=== PATIENT | female | born 1995 ===

== ENCOUNTER 2019-03-12 11:32 | Inpatient (IN) | payer OTHER ==
[2019-03-12 19:49] VITALS: BMI 32.0
[2019-03-12] MEDS ORDERED: Lactated Ringer's 1,000 ML IV ONE (19:50)
[2019-03-12 20:23] LABS: BASO % 0.3 % (0.0-2.0); EOS % 0.2 % (0.0-4.0); HEMOGLOBIN 10.2 g/dL (11.0-16.0); LYMPH # 1.9 K/uL (1.0-4.3); LYMPH % 30.7 % (20.0-40.0); MEAN CELL VOLUME 69.9 fL (81.0-99.0); MEAN CORPUSCULAR HEMOGLOBIN 21.5 pg (27.0-31.0); MEAN CORPUSCULAR HGB CONC 30.8 g/dL (33.0-37.0); MEAN PLATELET VOLUME 9.3 fL (7.2-11.7); MONO # 0.6 K/uL (0.0-0.8); NEUT # 3.8 K/uL (1.8-7.0); NEUT % 59.8 % (50.0-75.0); RBC 4.76 Mil/uL (3.80-5.20); RED CELL DISTRIBUTION WIDTH 18.4 % (11.5-14.5); WHITE BLOOD COUNT 6.3 K/uL (4.8-10.8)
--- NOTE | 2019-03-12 20:30 | OBADHP ---
Datetime: 03/12/2019 19:14 Admit Comment, IP Provider: 23 yo female G1 with an IUP at 40.6 weeks and admitted for IOL for postd ates. Admits to adequate FM and denies LOF, VB or VD. Denies any complications. PMHx: Chronic Anemia PSHx: Negative Meds: PNV NKDA Social Hx denies smoking, alcohol or street drugs PE see findings above A/P Postdates IOL GBS Negative Hx of Chronic Anemia Labs and IVF ordered Will give Cytotec po and ordered Requested an Epidural and will give when requested Anticipate a vaginal delivery Pelvic Type - PN: Adequate Extremities - PN: Normal Abdomen - PN: Normal Back - PN: Normal Breast - PN: Not Done Lungs - PN: Normal Heart - PN: Normal Thyroid - PN: Normal Neurologic - PN: Normal HEENT - PN: Normal General - PN: Normal Presentation-Admit: Vertex (Annotations: Data stored by CPN on behalf of user) FHR - Baseline A Provider: 120 Membranes, Provider: Intact Contraction Comments Provider: 3-5 Gestation - Est Wks by US: 40.6 IP Hx Assessment: The History has been Reviewed and is Current Vital Signs Provider: Reviewed; Within Normal Limits IP Chief Complaint: Scheduled induction of labor NICHD Variability Prov Fetus A: Moderate 6-25bpm NICHD Accel Fetus A IP Provider: 10X10 FHR Category Provider Fetus A: Category I NICHD Decel Fetus A IP Provider: None Dilatation, Provider: 2 Effacement, Provider: 80 Station, Provider: -2 Genitourinary Exam: Normal DTRs - PN: Normal EGA AdmitDate IP: 40.6 IP Adm Impression: Postterm, intrauterine ; No Active Labor; Intact Membranes IP Admit Plan: Admit to unit; Initiate labor induction protocol
[2019-03-12 20:33] LABS: SQUAMOUS EPITHIAL 5 /hpf (0-5); URINE BACTERIA FEW (<OCC); URINE BILIRUBIN NEGATIVE (NEGATIVE); URINE BLOOD NEGATIVE (NEGATIVE); URINE CLARITY Hazy (Clear); URINE COLOR Yellow (YELLOW); URINE GLUCOSE (UA) NORMAL (Normal); URINE LEUKOCYTE ESTERASE 2+ Leu/uL (Negative); URINE PROTEIN NEGATIVE (NEGATIVE); URINE UROBILINOGEN NORMAL mg/dL (0.2-1.0)
[2019-03-12 20:44] LABS: ALB/GLOB RATIO 1.2 (1.0-2.1); ALBUMIN 3.5 g/dL (3.5-5.0); ALT/SGPT 16 U/L (9-52); AST/SGOT 20 U/L (14-36); BLOOD UREA NITROGEN 8 mg/dL (7-17); CALCIUM 9.3 mg/dl (8.6-10.4); GFR NON-AFRICAN AMERICAN > 60
[2019-03-12] MEDS ORDERED: Fentanyl/Bupivacaine HCl 250 ML EPI ONE (23:03)
[2019-03-12] MEDS: Lactated Ringer's 1,000 ML IV SCH (23:44)
[2019-03-13] MEDS: Lactated Ringer's 1,000 ML IV SCH (05:15)
[2019-03-13] MEDS ORDERED: Oxytocin 10 Units/ml Inj ONE (06:12)
--- NOTE | 2019-03-13 06:56 | OBPN ---
Datetime: 03/13/2019 06:54 IP Procedures Other: SROM IP Progress Impression: Normal progression of labor; Reassuring heart rate IP Informed Consent Obtain: Vaginal Delivery IP Procedures: Sterile Vag Exam IP Progress Plan: Continue present management Dilatation, Provider: 8 Datetime: 03/12/2019 23:45 FHR - Baseline A Provider: 120 Gestation - Est Wks by US: 40.6 Presentation-Admit: Vertex IP Progress Note Comment: Pt seen and examined Responded well to Cytotec Epidural in place and working well Reassuring FHT's Continue Present Management NICHD Accel Fetus A IP Provider: 10X10 FHR Category Provider Fetus A: Category I NICHD Variability Prov Fetus A: Moderate 6-25bpm Effacement, Provider: 90 Station, Provider: -2 NICHD Decel Fetus A IP Provider: None Datetime: 03/12/2019 19:14 Membranes, Provider: Intact Contraction Comments Provider: 3-5 Vital Signs Provider: Reviewed; Within Normal Limits
--- NOTE | 2019-03-13 07:11 | OBPN ---
Datetime: 03/13/2019 06:54 Membranes, Provider: Ruptured Amniotic Fluid Color, Provider: Clear Gestation - Est Wks by US: 41.0 Presentation-Admit: Vertex IP Progress Note Comment: Pt seen and examined C/O of pain and Anesthesia called in and here Making good progress after 2 doses of Cytotec Reassuring FHT's Anticipate Vaginal Delivery
--- NOTE | 2019-03-13 09:41 | OBPN ---
Datetime: 03/13/2019 09:35 IP Progress Impression: Normal progression of labor; Reassuring heart rate IP Informed Consent Obtain: Vaginal Delivery IP Procedures: Sterile Vag Exam IP Progress Plan: Continue present management Membranes, Provider: Ruptured FHR - Baseline A Provider: 110 Gestation - Est Wks by US: 41.0 IP Progress Note Comment: Pt aseen and examined Pushing and doing well Reassuring tracing Anticipate a vaginal delivery NICHD Accel Fetus A IP Provider: 10X10 NICHD Variability Prov Fetus A: Moderate 6-25bpm Dilatation, Provider: 10 Effacement, Provider: 100 Station, Provider: 1
[2019-03-13] MEDS ORDERED: Lidocaine 2% MPF (5 ml) Inj ONE (10:43)
--- NOTE | 2019-03-13 11:20 | OBDS ---
MATERNAL INFORMATION Delivery Anesthesia: Epidural Provider Comments: of a viable Male from ZAINAB position and over an intact perineum and af ter releasing a loose CNC x 1. Apgars 9_9. BW 8lbs, 5oz. Cord Blood and cord pH obtained and sent Placenta with 3 vessel cord delivered and discarded EBL 600 mls 2nd degree perineal tear repaired with 2-0 Vicryl and without complications Pt and tolerated the procedure well and remained in L_D room in S_S condition. Medical Student Alanna present and assisted with delivery LABOR SUMMARY EDC: 03/06/2019 00:00 No. Babies in Womb: 1 LABOR INFORMATION Onset of Labor: 03/12/2019 23:43 Cervical Ripening Agents: Cytotec @ Group B Beta Strep: Negative Steroids Given: None Reason Steroids Not Administered: Not Applicable MEMBRANES Membranes Rupture Method: Spontaneous Rupture of Membranes: 03/13/2019 06:30 Length of Rupture (hrs): 4.18 Amniotic Fluid Color: Clear Amniotic Fluid Amount: Moderate Amniotic Fluid Odor: Normal STAGES OF LABOR Stage 3 hrs: 0 Stage 3 min: 4 Total Time in Labor hrs: 11 Total Time in Labor min: 2 VAGINAL DELIVERY Laceration Extension: Second Degree Laceration Type: Perineal Laceration Repair: Yes Laceration Repair Note: 1-0 Vicryl used to repair without complications. Pt tolerated well. Initial Vag Sponge Count: 10 Sharps Count Correct: Yes CSECTION DELIVERY CSection Incision: N/A BABY A INFORMATION Delivery Date/Time: 03/13/2019 10:41 Method of Delivery: Vaginal Born in Route : No : N/A Forceps: N/A Vacuum Extraction: N/A Shoulder Dystocia : No SHOULDER DYSTOCIA BABY A Delivery Date/Time: 03/13/2019 10:41 PRESENTATION/POSITION BABY A Presentation: Cephalic Cephalic Presentation: Vertex Breech Presentation: N/A PLACENTA INFORMATION BABY A Placenta Delivery Time : 03/13/2019 10:45 Placenta Method of Delivery: Spontaneous Placenta Status: Delivered SCORES BABY A Heart Rate 1 min: >100 bpm Resp Effort 1 min: Good Cry Reflex Irritability 1 min: Cough or Sneeze or Pulls Away Muscle Tone 1 min: Active Motion Color 1 min: Body [place], Extremities Blue Resuscitation Effort 1 min: Tactile Stimulation SCORE 1 MIN: 9 Heart Rate 5 min: >100 bpm Resp Effort 5 min: Good Cry Reflex Irritability 5 min: Cough or Sneeze or Pulls Away Muscle Tone 5 min: Active Motion Color 5 min: Body [place], Extremities Blue SCORE 5 MIN: 9 INFANT INFORMATION BABY A Gestational Age at Delivery: 41.0 Gestational Status: Term Infant Outcome : Liveborn Condition : Stable Sex: Male IDENTIFICATION/MEDS BABY A ID Band Number: [id number] ID Band Location: Left Leg; Left Arm Sensor Applied: Yes Sensor Number: [id number] Sensor Location : Cord Clamp Vitamin K Given : Aquamephyton 0.5 mg IM; Left Thigh Erythromycin Given: Given Both Eyes WEIGHT/LENGTH BABY A Infant Birthweight (gms): 3760 Weight (lb): 8 Weight (oz): 5 Infant Length Inches: 20.75 Infant Length cms: 52.7 CORD INFORMATION BABY A No. Cord Vessels: 3 Nuchal Cord : Around Neck x1, Loose Cord Blood Taken: Yes Infant Suction: Mouth; Nose ASSESSMENT BABY A Complications: None Physical Findings at Delivery: Within Normal Limits Infant Respirations: Appears Normal Pipelines Supervisor/ALS Called : No
[2019-03-13] MEDS ORDERED: Oxycodone/Acetaminophen 5/325 mg Tab PO PRN (11:23)
[2019-03-13] MEDS: Benzocaine/Menthol 20%-0.5% Topical Spray (60 ml) TOP PRN (18:25)
[2019-03-14 08:12] LABS: BASO % 0.2 % (0.0-2.0); EOS # 0.1 K/uL (0.0-0.7); EOS % 0.5 % (0.0-4.0); HEMOGLOBIN 8.8 g/dL (11.0-16.0); LYMPH # 2.4 K/uL (1.0-4.3); LYMPH % 22.1 % (20.0-40.0); MEAN CELL VOLUME 70.4 fL (81.0-99.0); MEAN CORPUSCULAR HEMOGLOBIN 22.3 pg (27.0-31.0); MEAN CORPUSCULAR HGB CONC 31.6 g/dL (33.0-37.0); MEAN PLATELET VOLUME 9.3 fL (7.2-11.7); MONO # 0.8 K/uL (0.0-0.8); MONO % 7.2 % (0.0-10.0); NEUT # 7.6 K/uL (1.8-7.0); NRBC % 0.2 % (0.0-2.0); RBC 3.97 Mil/uL (3.80-5.20); RED CELL DISTRIBUTION WIDTH 18.6 % (11.5-14.5); WHITE BLOOD COUNT 10.8 K/uL (4.8-10.8)
[2019-03-14] MEDS: Oxycodone/Acetaminophen 5/325 mg Tab PO PRN ×2 (09:40→16:50)
--- NOTE | 2019-03-14 10:36 | OBPPN ---
Datetime: 03/14/2019 10:32 PP Nausea Prov: Denies PP Flatus Prov: No PP BM Prov: No PP Heart Prov: Normal PP Lungs Prov: Normal PP Abdomen/Uterus Prov: Normal PP Lochia Prov: Normal PP Vulva/Perineum Prov: Normal PP CVA Tenderness Prov: Normal PP Extremities Prov: Normal PP Comments Phys Exam Prov: FUNDUS FIRM ABOVE THE UMBILICUS PP Impression Prov: Normal progression PP Plan Prov: Continue present management PP Progress Note Prov: PT IS DOING WELL, CURRENTLY NO COMPLAINTS, AMBULATING TOLERATING PO DIET. DEN IES NAUSEA/VOMTING. VSS: AFEBRILE HGB: 8.8 FUNDUS FIRM ABOVE THE UMBILICUS EXT: NO EDEMA. A/P 23 S/P PPD#1. VSS: AFEBRILE ANEMIA: CONTINUE IRON CONTINUE ROUTIN PP CARE IP PP Procedures: None Vital Signs Provider PP: Reviewed
[2019-03-15] MEDS: Oxycodone/Acetaminophen 5/325 mg Tab PO PRN (04:49)
[2019-03-15 07:34] VITALS: BP 103/66; PULSE 95; O2SAT 99
[2019-03-15] MEDS: Benzocaine/Menthol 20%-0.5% Topical Spray (60 ml) TOP PRN (09:20)
[2019-03-15 15:52] VITALS: RESP 18; TEMP 97.5
--- NOTE | 2019-03-15 18:16 | OBDCSUM ---
Datetime: 03/15/2019 18:12 Discharged to, Provider: Home Follow up at, Provider: 2 weeks Disch Instr Activity: Normal activity; May be up to bathroom; May be up for meals; May Shower Disch Instr Diet: Regular Discharge Instructions, Provider: Routine instructions given Discharge Diagnosis, Provider: Term Delivered Discharge Time: 03/15/2019 18:12 Disch Referrals: None Contraception discussed, Prov: Yes Disch Activity Restrictions: No exercising; No lifting; No driving Discharge Comment, Provider: PT doing well. no complaints. Tolerating PO diet, denies nausea or vomi ting. Ambulating. Datetime: 03/14/2019 17:17 Discharge Time: 03/15/2019 08:30
== END 2019-03-15 11:50 | disposition home or self-care (01) | DRG 373 ==
LOC: C.4D 18:47 → UNDOADMIN 18:50 → C.4M 03-13 13:40
PROVIDERS: ADMIT Obstetrics & Gynecology; ATTEND Obstetrics & Gynecology
PROC: 3E0P7VZ Introduction of Hormone into Female Reproductive, Via Natural or Artificial Opening (ICD-10-PCS; 2019-03-12)
PROC: 10E0XZZ Delivery of Products of Conception, External Approach (ICD-10-PCS; principal; 2019-03-13)
PROC: 0KQM0ZZ Repair Perineum Muscle, Open Approach (ICD-10-PCS; 2019-03-13)
DX: O48.0 Post-term pregnancy (principal); O99.02 Anemia complicating childbirth; O69.81X0 Labor and delivery complicated by cord around neck, without compression, not applicable or unspecified; O70.1 Second degree perineal laceration during delivery; D64.9 Anemia, unspecified; Z3A.40 40 weeks gestation of pregnancy; Z37.0 Single live birth